=== PATIENT | female | born 1945 | race Caucasian/White ===

== ENCOUNTER → 2019-03-15 08:39 | Outpatient (BNVA) | payer MEDICARE, OTHER, SELFPAY | PROVIDERS: Visit Provider Nurse Practitioner Family | DX: J40 Bronchitis, not specified as acute or chronic (principal); R09.89 Other specified symptoms and signs involving the circulatory and respiratory systems; E78.5 Hyperlipidemia, unspecified; K21.9 Gastro-esophageal reflux disease without esophagitis; I10 Essential (primary) hypertension; G25.81 Restless legs syndrome | CPT/HCPCS: 71046; 80053; 80061; 85025; 87804 ==

== ENCOUNTER → 2019-08-08 15:15 | Outpatient (BNVA) | payer MEDICARE, OTHER, SELFPAY | PROVIDERS: PCP Nurse Practitioner Family; Visit Provider Nurse Practitioner Family | DX: R53.83 Other fatigue (principal); L57.0 Actinic keratosis; E55.9 Vitamin D deficiency, unspecified; Z68.27 Body mass index [BMI] 27.0-27.9, adult; F17.210 Nicotine dependence, cigarettes, uncomplicated | CPT/HCPCS: 80053; 82306; 82607; 84443; 85025; 86308 ==

== ENCOUNTER → 2019-10-03 12:10 | Outpatient (BNVA) | payer MEDICARE, OTHER, SELFPAY | PROVIDERS: PCP Nurse Practitioner Family; Visit Provider Family Medicine | DX: E78.5 Hyperlipidemia, unspecified (principal); R53.83 Other fatigue | CPT/HCPCS: 80053; 80061; 84443; 85025 ==

== ENCOUNTER → 2020-04-19 15:38 | Outpatient (BNVA) | payer MEDICARE, SELFPAY | PROVIDERS: PCP Family Medicine; Visit Provider Family Medicine | DX: M25.531 Pain in right wrist (principal) | CPT/HCPCS: 73110 ==

== ENCOUNTER 2020-08-09 08:07 | Outpatient (RCR) | payer MEDICARE, SELFPAY | END 2020-09-08 23:59 | disposition home or self-care (01) | LOC: SOT 08:07 | PROVIDERS: PCP Family Medicine; Referring Provider Orthopaedic Surgery; Visit Provider Orthopaedic Surgery | DX: Z47.89 Encounter for other orthopedic aftercare (principal) | CPT/HCPCS: 97110; 97140; 97166 ==

== ENCOUNTER → 2020-12-12 11:35 | Outpatient (BNVA) | payer MEDICARE, SELFPAY | PROVIDERS: PCP Family Medicine; Visit Provider Family Medicine | DX: G25.81 Restless legs syndrome (principal); E78.5 Hyperlipidemia, unspecified; K21.9 Gastro-esophageal reflux disease without esophagitis; I10 Essential (primary) hypertension | CPT/HCPCS: 80053; 80061; 84443; 85025 ==

== ENCOUNTER → 2021-02-21 10:51 | Outpatient (BNVA) | payer MEDICARE, SELFPAY | PROVIDERS: PCP Family Medicine; Visit Provider Nurse Practitioner | DX: Z20.822 Contact with and (suspected) exposure to COVID-19 (principal) | CPT/HCPCS: 87635 ==

== ENCOUNTER → 2021-04-01 11:07 | Outpatient (BNVA) | payer MEDICARE, SELFPAY | PROVIDERS: PCP Family Medicine; Visit Provider Nurse Practitioner Family | DX: R09.02 Hypoxemia (principal); E78.5 Hyperlipidemia, unspecified; G25.81 Restless legs syndrome; R30.0 Dysuria; I10 Essential (primary) hypertension; U07.1 COVID-19; J18.9 Pneumonia, unspecified organism | CPT/HCPCS: 71046; 80053; 80061; 81003; 82306; 82607; 84443; 85025; 87077; 87086; 87184 ==

== ENCOUNTER → 2021-08-16 09:08 | Outpatient (BNVA) | payer MEDICARE, SELFPAY | PROVIDERS: PCP Family Medicine; Visit Provider Nurse Practitioner Family | DX: E78.5 Hyperlipidemia, unspecified (principal); K21.9 Gastro-esophageal reflux disease without esophagitis; I10 Essential (primary) hypertension; G47.00 Insomnia, unspecified; G25.81 Restless legs syndrome; M19.90 Unspecified osteoarthritis, unspecified site; N39.3 Stress incontinence (female) (male); R29.6 Repeated falls | CPT/HCPCS: 80053; 80061 ==

== ENCOUNTER → 2021-11-25 16:36 | Outpatient (BNVA) | payer MEDICARE, SELFPAY | PROVIDERS: PCP Family Medicine; Visit Provider Family Medicine | DX: M25.511 Pain in right shoulder (principal) | CPT/HCPCS: 73030 ==

== ENCOUNTER 2021-11-25 18:43 | Emergency (ER) | payer MEDICARE, SELFPAY ==
--- NOTE | 2021-11-25 18:57 | XRR_ITS ---
PROCEDURE INFORMATION: Exam: XR Right Shoulder Exam date and time: 11/25/2021 8:24 PM Age: 76 years old Clinical indication: Pain; Shoulder; Right; Additional info: Injury TECHNIQUE: Imaging protocol: Radiologic exam of the Right shoulder. Views: 2 or more views. COMPARISON: CR XR shoulder RT min 2V* [id number] 11/25/2021 5:01 PM FINDINGS: Bones/joints: There is no evidence of fracture or dislocation. There are findings of ACDF C5 through C7. Lungs: There is some minimal subsegmental atelectasis or scarring in the right lung. Soft tissues: Normal. XR/XR shoulder RT min 2V* [id number] IMPRESSION: No acute finding. No significant changes seen compared with the examination done at 5:00 p.m..
[2021-11-25 19:00] VITALS: PULSE 68; RESP 16; TEMP 36.7; O2SAT 95; BMI 28.3
--- NOTE | 2021-11-25 21:13 | ED_ITS ---
HPI - Extremity Problem General: Chief complaint: Extremity Injury, Upper Stated complaint: Shoulder Dislocated Sent by Sommer Reinoso Time Seen by Provider: 11/25/21 21:13 History of Present Illness: 76-year-old female was referred to ER from primary care office for further evaluation and treatment of a right shoulder pain. Patient on had fallen and landed on her left side striking her head. Patient started having some shoulder discomfort after getting herself up off to the ground on the right side. Patient was seen at her physician's office and thought she might have a dislocated shoulder and referred her to the ER for reduction. X-ray was read by radiologist did not note dislocation or fracture. Patient was here for further evaluation and possible treatment. Review of Systems General: Reports: 10 or more systems reviewed and unremarkable except in HPI and below Musc: Reports: extremity pain PFSH ED PFSH: Medical History Anxiety disorder, unspecified Arteriosclerotic heart disease Chronic inflammatory arthritis Essential (primary) hypertension GERD (gastroesophageal reflux disease) Hyperlipidemia, unspecified Stress incontinence (female) (male) Tendonitis Surgical History H/O: hysterectomy History of carpal tunnel release of both wrists History of colonoscopy 2009 History of hand surgery Family History Mother Heart disease Father Heart disease Social History Smoking and tobacco status: current some day smoker cigarettes Packs smoked per day: 0.5 Years cigarettes smoked: 50 Second hand smoke exposure: No Smoking risk assessment/counseling performed?: No Alcohol intake: unknown Desire information about alcohol rehabilitation?: No Counseling given: No Desire information about substance/drug rehabilitation?: No Counseling given: No Adopted: No Caregiver/support person: No Lives independently: Yes Household members: none Housing: House Marital status: / service: No Current occupational status: employed History of recent travel: No Current gender identity: Female Physical Exam Const: COMMON NORMALS: alert HENMT: COMMON NORMALS: normocephalic HEAD & SCALP: normocephalic Neck/C-Spine: COMMON NORMALS: full ROM Resp: COMMON NORMALS: normal respiratory effort and clear to auscultation bilaterally AUSCULTATION: clear to auscultation bilaterally Cardio: COMMON NORMALS: regular rate and regular rhythm RATE: regular rate RHYTHM: regular rhythm Extremity: RIGHT UPPER EXTREMITY: Yes shoulder joint (Anterior shoulder tenderness, pain elicited with forward reaching) Right shoulder: Yes Right shoulder joint inspection exam, Yes palpation, Yes Right shoulder joint ROM exam (Normal range of motion,), Yes Right shoulder joint neurovascular exam and Yes Right shoulder joint special tests Right shoulder special tests: Clunk test: Positive Neuro: SENSORIUM/ORIENTATION: Yes alert Skin: COMMON NORMALS: turgor normal GENERAL SKIN EXAM: turgor normal Course Vital Signs: Vital signs: Vital Signs Temperature 98.0 F 11/25/21 19:00 Pulse Rate 68 11/25/21 19:00 Respiratory Rate 16 11/25/21 19:00 Pulse Oximetry 95 11/25/21 19:00 Oxygen Delivery Me thod 11/25/21 19:00 MDM - Extremity (Nontraumatic) Medical Decision Making 76-year-old female comes in today for complaints of pain and discomfort to the anterior right shoulder. On exam patient has tenderness on palpation of the anterior shoulder. Distal pulses and sensation are intact. Range of motion of the shoulder is intact. Patient is able to move her shoulder without difficulty. Patient does have pain that is elicited by forward reaching of the shoulder. Differential diagnosis includes fracture, dislocation, sprain, shoulder impingement syndrome. X-ray of the shoulder noted no dislocation or fracture. Feel the patient probably has some mild impingement versus a strain of the shoulder/rotator cuff. Recommended activity as tolerated and Tylenol for pain along with heat or cold. Patient stated understanding and agreed to plan. Lab Data Radiology Impressions Shoulder X-Ray 11/25/21 18:57 IMPRESSION: No acute finding. No significant changes seen compared with the examination done at 5:00 p.m.. Discharge Plan Discharge Patient Disposition: Home Clinical Impression: Rotator cuff strain Qualifiers: Encounter type: initial encounter Laterality: right Qualified Code(s): S46.011A - Strain of muscle(s) and tendon(s) of the rotator cuff of right shoulder, initial encounter Condition: Stable Prescriptions: No Action fluticasone propionate [Flonase Allergy Relief] 50 mcg/actuation spray,suspension 1 spray INTRANASAL Q12H nitroglycerin [Nitrostat] 0.4 mg tablet, sublingual 0.4 mg SUBLINGUAL Q5M PRN (Reason: chest pain) Qty: 30 0RF potassium chloride 10 mEq tablet extended release See Rx Instructions .ROUTE .COMPLEX Qty: 90 3RF Dose Instruction: Take 1 tablet by mouth once daily Rx Instructions: Take 1 tablet by mouth once daily diclofenac sodium 1 % gel 2 g topical QID Qty: 100 3RF Rx Instructions: apply to single elbow, wrist or hand; for hand includes palm/fingers/back of hand albuterol sulfate [ProAir HFA] 90 mcg/actuation HFA aerosol inhaler 2 puff inhalation Q6H PRN (Reason: shortness of breath or wheezing) Qty: 8.5 0RF amitriptyline 25 mg tablet 50 mg PO DAILY 90 Days Qty: 180 1RF citalopram 20 mg tablet See Rx Instructions .ROUTE .COMPLEX Qty: 90 1RF Dose Instruction: Take 1 tablet by mouth once daily Rx Instructions: Take 1 tablet by mouth once daily clopidogrel 75 mg tablet 75 mg PO DAILY Qty: 90 1RF famotidine 20 mg tablet 20 mg PO BID Qty: 180 1RF isosorbide mononitrate 30 mg tablet extended release 24 hr See Rx Instructions .ROUTE .COMPLEX Qty: 90 1RF Dose Instruction: TAKE 1 TABLET BY MOUTH IN THE MORNING Rx Instructions: TAKE 1 TABLET BY MOUTH IN THE MORNING metoprolol succinate 25 mg tablet extended release 24 hr See Rx Instructions .ROUTE .COMPLEX Qty: 90 1RF Dose Instruction: Take 1 tablet by mouth once daily Rx Instructions: Take 1 tablet by mouth once daily Claritin Liqui-Gel 10 mg capsule 10 mg PO ONCE Qty: 90 3RF oxybutynin chloride 5 mg tablet See Rx Instructions .ROUTE .COMPLEX Qty: 180 1RF Dose Instruction: Take 1 tablet by mouth twice daily Rx Instructions: Take 1 tablet by mouth twice daily pramipexole 0.25 mg tablet See Rx Instructions .ROUTE .COMPLEX Qty: 90 1RF Dose Instruction: TAKE 1 TABLET BY MOUTH AT BEDTIME Rx Instructions: TAKE 1 TABLET BY MOUTH AT BEDTIME rosuvastatin 40 mg tablet See Rx Instructions .ROUTE .COMPLEX Qty: 90 1RF Dose Instruction: Take 1 tablet by mouth once daily Rx Instructions: Take 1 tablet by mouth once daily diclofenac sodium [Voltaren Arthritis Pain] 1 % gel 2 g topical QID Qty: 100 0RF Rx Instructions: apply to foot Debrox 6.5 % drops 5 drp otic (ear) Q12H 4 Days Qty: 15 0RF Discharge Orders: Discharge ED (Routine); Ordered 11/25/21 Ordered By: Cayetano Dhillon Referrals: Sommer Reinoso MD [Primary Care Provider] - Discharge Diet: Usual diet Discharge Activity: Increase activity as tolerated Patient Instructions: Shoulder Impingement Syndrome (ED) Activity Restrictions/Additional Instructions: Activity as tolerated. Gentle stretching and range of motion exercises of the shoulder. Use ice or heat for further pain relief. Use acetaminophen, 1000 mg, every 6 hours for the next 5 days as needed for pain. Follow-up with primary care for further instruction and evaluation. Follow-up with contracts specialist for continued pain or worsening symptoms. Coding Level of Care Code ED Pipe Smoker Machine Operator for Konrad Ontiveros
== END 2021-11-25 21:29 | disposition home or self-care (01) ==
PROVIDERS: Emergency Provider Nurse Practitioner Family; PCP Family Medicine
DX: S46.011A Strain of muscle(s) and tendon(s) of the rotator cuff of right shoulder, initial encounter (principal); Z79.02 Long term (current) use of antithrombotics/antiplatelets; I10 Essential (primary) hypertension; E78.5 Hyperlipidemia, unspecified; F17.210 Nicotine dependence, cigarettes, uncomplicated; W19.XXXA Unspecified fall, initial encounter; M25.511 Pain in right shoulder
CPT/HCPCS: 73030; 99283

== ENCOUNTER → 2022-06-25 09:08 | Outpatient (BNVA) | payer MEDICARE, SELFPAY | PROVIDERS: PCP Family Medicine; Visit Provider Family Medicine | DX: R05.9 Cough, unspecified (principal); J01.00 Acute maxillary sinusitis, unspecified | CPT/HCPCS: 87400; 87426 ==

== ENCOUNTER 2022-10-20 10:13 | Outpatient (CLI) | payer MEDICARE, SELFPAY ==
--- NOTE | 2022-10-20 10:20 | XR_ITS ---
WS: [id number] Exam: XR shoulder RT min 2V* [id number] Date/Time of Exam: 10/20/2022 10:24 AM Reason For Exam: M25.511 - Pain in right shoulder Comparison 11/25/2021. No fracture or dislocation. Degenerative change of the AC joint and bone spurring of the distal clavi cassidy. Mild soft tissue calcification along the humeral head suggesting calcific bursitis and/or tendin itis. Fusion hardware in the lower C-spine. IMPRESSION: 1. AC joint DJD. 2. Soft tissue calcifications along the humeral head that may reflect calcific tendinitis and/or burs itis.
== END 2022-10-20 10:14 | disposition home or self-care (01) ==
PROVIDERS: PCP Family Medicine; Visit Provider Family Medicine
DX: M19.011 Primary osteoarthritis, right shoulder (principal); M25.511 Pain in right shoulder
CPT/HCPCS: 73030

== ENCOUNTER 2022-11-19 09:00 | Outpatient (CLI) | payer MEDICARE, SELFPAY ==
--- NOTE | 2022-11-19 10:15 | MR_ITS ---
WS: [id number] MRI RIGHT SHOULDER NONCONTRAST TECHNIQUE: Sagittal T2, coronal T1, T2 and proton density imaging. Axial gradient PDE imaging. CLINICAL INFORMATION: M25.511 - Pain in right shoulder COMPARISON: None. FINDINGS: Moderate degenerative arthritis AC joint with mild narrowing of the subacromial space. Slight impinge ment on the distal supraspinatus. Fluid and edema at the AC joint. Small subacromial and subdeltoid e ffusion. Tendinopathy distal supraspinatus. Small tear at the supraspinatus insertion. No tendon retraction. T endinopathy infraspinatus. Normal teres minor. Intrasubstance tear involving the biceps tendon within the bicipital groove with tendinopathy. Diffuse tendinopathy involving the intra-articular biceps te ndo. Tendinopathy with chronic thinning of the subscapularis tendon distally. Degenerative fraying of the glenoid labrum. Small subcoracoid effusion. Degenerative cystic change of the greater tuberosity. IMPRESSION: 1. Moderate degenerative arthritis at the AC joint with fluid and edema. Subacromial and subdeltoid fluid. 2. Chronic thinning of the supraspinatus with a small insertional tear distally. No tendon retractio n. 3. Tendinopathy supraspinatus and infraspinatus. 4. Diffuse thickening and tendinopathy with partial intrasubstance tear involving the biceps tendon within the bicipital groove. T2 signal normality with diffuse tendinopathy involving the intra-articu lar biceps tendon. 5. Tendinopathy with chronic thinning of the subscapularis tendon. 6. Degenerative fraying of the glenoid labrum.
== END 2022-11-19 09:01 | disposition home or self-care (01) ==
PROVIDERS: PCP Family Medicine; Visit Provider Family Medicine
DX: M19.011 Primary osteoarthritis, right shoulder (principal); M75.101 Unspecified rotator cuff tear or rupture of right shoulder, not specified as traumatic; S46.211A Strain of muscle, fascia and tendon of other parts of biceps, right arm, initial encounter; X58.XXXA Exposure to other specified factors, initial encounter
CPT/HCPCS: 73221

== ENCOUNTER 2022-12-15 06:00 | Outpatient (RCR) | payer MEDICARE, SELFPAY | END 2023-01-08 23:59 | disposition home or self-care (01) | LOC: APT 06:00 | PROVIDERS: Visit Provider Orthopaedic Surgery | DX: M75.41 Impingement syndrome of right shoulder (principal) | CPT/HCPCS: 97110; 97140; 97161; 97530 ==

== ENCOUNTER 2023-03-25 06:00 | Outpatient (RCR) | payer MEDICARE, SELFPAY | END 2023-04-09 23:59 | disposition home or self-care (01) | LOC: APT 06:00 | PROVIDERS: Visit Provider Orthopaedic Surgery | DX: S46.091D Other injury of muscle(s) and tendon(s) of the rotator cuff of right shoulder, subsequent encounter (principal); X58.XXXD Exposure to other specified factors, subsequent encounter | CPT/HCPCS: 97110; 97161; 97530 ==

== ENCOUNTER 2023-04-10 06:00 | Outpatient (RCR) | payer MEDICARE, SELFPAY | END 2023-05-10 23:59 | disposition home or self-care (01) | LOC: APT 06:00 | PROVIDERS: Visit Provider Orthopaedic Surgery | DX: S46.091D Other injury of muscle(s) and tendon(s) of the rotator cuff of right shoulder, subsequent encounter (principal); X58.XXXD Exposure to other specified factors, subsequent encounter | CPT/HCPCS: 97110; 97112; 97530 ==

== ENCOUNTER 2023-05-11 06:00 | Outpatient (RCR) | payer MEDICARE, SELFPAY | END 2023-06-09 23:59 | disposition home or self-care (01) | LOC: APT 06:00 | PROVIDERS: Visit Provider Orthopaedic Surgery | DX: S46.091D Other injury of muscle(s) and tendon(s) of the rotator cuff of right shoulder, subsequent encounter (principal); X58.XXXD Exposure to other specified factors, subsequent encounter | CPT/HCPCS: 97110; 97140; 97530 ==

== ENCOUNTER → 2023-07-13 13:32 | Outpatient (BNVA) | payer MEDICARE, SELFPAY | PROVIDERS: PCP Family Medicine; Visit Provider Family Medicine | DX: Z87.81 Personal history of (healed) traumatic fracture (principal) | CPT/HCPCS: 80053; 80061; 84443; 85025 ==

== ENCOUNTER 2023-08-18 09:28 | Outpatient (CLI) | payer MEDICARE, SELFPAY ==
--- NOTE | 2023-08-18 09:40 | MM_ITS ---
WS: [id number] Bilateral screening 3D tomosynthesis digital mammogram, 08/18/2023 Clinical Data: Z12.39 - Encounter for other screening for malignant neop... Comparison: 05/05/2011, 04/26/2008. Findings: The breast parenchymal pattern shows fibroglandular tissue. No spiculated masses or clustered calcifi cations are seen. There are no secondary signs of carcinoma. Mole markers are on both breasts. MM/[place] [id number] Impression: 1. Negative bilateral mammogram unchanged. 2. Recommend annual screening mammograms. BIRADS: 1-Negative FOLLOW UP: 1 Year Follow-up The CAD program checker was used.
== END 2023-08-18 09:29 | disposition home or self-care (01) ==
LOC: MOBLMAM 09:45
PROVIDERS: PCP Family Medicine; Visit Provider Family Medicine
DX: Z12.39 Encounter for other screening for malignant neoplasm of breast (principal)
CPT/HCPCS: 77063; 77067

== ENCOUNTER → 2023-10-28 13:23 | Outpatient (BNVA) | payer MEDICARE, SELFPAY | PROVIDERS: PCP Family Medicine; Visit Provider Family Medicine | DX: I10 Essential (primary) hypertension (principal); E78.5 Hyperlipidemia, unspecified | CPT/HCPCS: 80053; 80061; 84443; 85025 ==